=== PATIENT | male | born 1985 | race Caucasian/White ===

== ENCOUNTER 2022-09-03 11:32 | Emergency (ER) | payer OTHER, SELFPAY ==
--- NOTE | ~2022-09-03 | XR_ITS ---
EXAMINATION: XR CHEST CLINICAL INFORMATION: Chest pain COMPARISON: None available. TECHNIQUE: 2 views of the chest were obtained. FINDINGS: No significant abnormality is noted involving the heart, lungs, mediastinum, bony thorax or soft tissues. XR/XR chest 2V IMPRESSION: Unremarkable examination.
[2022-09-03 11:33] VITALS: BP 153/98; PULSE 68; RESP 18; TEMP 36.8; O2SAT 98; BMI 31.4
--- NOTE | 2022-09-03 11:33 | ED_ITS ---
[facility] - General Adult General Chief complaint: Chest Pain Stated complaint: vital check Time Seen by Provider: 09/03/22 12:03 Source: patient and family () Mode of arrival: ambulatory History of Present Illness HPI narrative: 37-year-old male, otherwise healthy, states that he began experiencing chest pressure while driving just prior to arrival denies any alcohol or drug use, denies any family history of early cardiac disease denies any prescription medication. Patient still continues to have chest pressure/tightness, nonradiating and not associated with any dizziness/diaphoresis/nausea/shortness of breath. Related Data Allergies Allergy/AdvReac Type Severity Reaction Status Date / Time No Known Allergies Allergy Verified 09/03/22 14:17 Review of Systems Review of Systems: Pertinent positives and negatives as stated in [facility] Past Medical History Source: nursing notes reviewed Social History Social History Smoked in Last 30 Days: Yes Use of substances other than those prescribed or required for medical reasons: No Substance Use Type: Crack/Cocaine Substance Use Frequency: Occasionally Substance Use Frequency Other:: last use one month ago Advance Directives: No Advance Directives Information Provided: Yes Physical Exam ED Vital Signs: Vital Signs - 24 hr 09/03/22 11:33 09/03/22 12:43 09/03/22 13:50 Temperature 98.3 F 98.0 F Pulse Rate 68 59 59 Respiratory Rate 18 18 15 Blood Pressure 153/98 H 137/83 128/89 Pulse Oximetry 98 97 Oxygen Delivery Method Room Air Room Air BMI result Body Mass Index 31.4 VITAL SIGNS: Reviewed. GENERAL: Well developed, well nourished, in no acute distress. HEAD: Normocephalic/atraumatic EYES: PERRLA, EOMI EARS: Ext canals without abnormality NOSE: Nares patent bilateral OROPHARYNX: no oral lesions noted, posterior pharynx clear NECK: Supple, no adenopathy LUNGS: Normal breath sounds. No adventitious sounds or accessory muscle use. SpO2<98> CARDIOVASCULAR: Regular rate and rhythm without noted murmurs ABDOMEN: Soft, non-tender, non-distended with bowel sounds. MUSCULOSKELETAL: No tenderness, deformities, or effusions noted on gross inspection. EXTREMITIES: No cyanosis, clubbing or edema. SKIN: Inspection of the skin reveals no rashes NEUROLOGIC: Alert and oriented x 4. Strength and sensation to light touch were grossly intact x 4. Course Course Course Narrative: This is an RME: Additional HPI, ROS, PE not included below will be deferred to primary provider. This is a 37-year-old, with no known medical history, presenting to the emergency department with complaints of chest pain since today. Patient states that he was driving and suddenly felt a sharp pain in the left side of his chest. Denies history of similar symptoms in the past. No known family cardiac history. Mildly hypertension 153/98. All other VS WNL. Plan: labs, EKG, cxr Medications Administered Generic Name Dose Route Start Last Admin Trade Name Freq PRN Reason Stop Dose Admin Heparin Sodium/Sodium Chloride 25,000 unit in 250 mls @ 0 mls/hr 09/03/22 12:30 09/03/22 14:40 Heparin Sodium,Porcine/1/2ns IVCONT 0 units/kg/hr .Q0M NA 0 mls/hr Titration Protocol Per Protocol Discontinued Medications Generic Name Dose Route Start Last Admin Trade Name Freq PRN Reason Stop Dose Admin Aspirin 324 mg 09/03/22 11:55 09/03/22 12:05 Aspirin 81 Mg Tab.Chew PO 09/03/22 11:56 324 mg ONCE ONE Administration Atorvastatin Calcium 80 mg 09/03/22 12:18 09/03/22 12:29 Atorvastatin Calcium 80 Mg Tablet PO 09/03/22 12:19 80 mg ONCE ONE Administration Heparin Sodium (Porcine) 8,200 unit 09/03/22 12:23 09/03/22 12:29 Heparin Sodium,Porcine 5,000 Unit/Ml Vial 80 unit/kg (8200 unit) 09/03/22 12:24 8,200 unit IVPUSH Administration ONCE ONE Metoprolol Tartrate 25 mg 09/03/22 12:18 09/03/22 12:30 Metoprolol Tartrate 25 Mg Tablet PO 09/03/22 12:19 25 mg ONCE ONE Administration Protocol Medical Decision Making Medical Decision Making MDM Narrative: 1202: 37-year-old male with history and clinical presentation concerning for EKG findings that suggest Wellens with associated chest pressure/pain. A brought patient back immediately from the waiting room and have contacted cardiology with relevant historical findings and given patient aspirin. I immediately set at the bedside and discussed with patient the current findings and concerns. Cardiology has advise that will await initial troponins although these may be within normal limits. 1226: Patient given statin, beta-tanner, and started on heparin drip with bolus. Bedside echo is in process at this time. 1225: Cardiology, Dr. Love, currently making arrangements for PCI transfer to [facility]. 1242: Dr Sprague accepts transfer to PCU at this time. I was informed that the PTT was greater than 200, although protocol dictates that more time should of past prior to checking the PTT given the bolus and initiation of the heparin, I made the decision to hold the heparin drip for 1 hour and will check the PTT again in adjust as appropriate. We are still awaiting PCU bed at this time. Differential Diagnosis Please see the discussion above Consult Healthcare Provider Management of the patient was discussed with: Auto Slip Cover Installer Please see the discussion above Lab Data Please see the discussion above 09/03/22 11:47 09/03/22 11:47 Labs: Lab Results 09/03/22 09/03/22 09/03/22 Range/Units 11:47 11:47 11:47 WBC 5.9 (4.8-10.8) X10*3/uL RBC 5.31 (4.60-5.80) X10*6/uL Hgb 15.6 (14.0-18.0) g/dl Hct 45.9 (42.0-52.0) % MCV 86.4 (80.0-98.0) fL MCH 29.4 (27.0-33.0) pg MCHC 34.0 (31.0-36.0) g/dl RDW 12.7 (11.0-16.0) % Plt Count 230 (160-400) X10*3/uL MPV 10.3 (9.4-12.4) fL Immature Gran % (Auto) 0.2 (0.0-0.4) % Neut % (Auto) 54.0 (45-73) % Lymph % (Auto) 36.5 (20-40) % [place] % (Auto) 6.6 (2-11) % Eos % (Auto) 2.4 (0-4) % Baso % (Auto) 0.3 (0-2) % Lymph # (Auto) 2.2 (1.2-4.9) X10*3/uL [place] # (Auto) 0.4 (0.1-1.2) X10*3/uL Eos # (Auto) 0.1 (0.0-0.4) X10*3/uL Baso # (Auto) 0.0 (0.0-0.2) X10*3/uL Abs Immat Gran (auto) 0.01 (0.00-0.03) X10*3/uL Absolute Neuts (auto) 3.2 (2.0-8.3) x10*3/uL Absolute Nucleated RBC 0.000 (0.0-0.012) X10*3/uL Nucleated RBC % (auto) 0.0 (0.0-0.2) /100WBC PT 9.9 L (10.0-13.1) SEC INR 0.9 (0.9-1.1) APTT 31.4 (26.0-36.4) SEC aPTT Heparin Protocol (53-77.9) SEC Sodium 140 (135-145) mmol/L Potassium 3.9 (3.3-5.1) mmol/L Chloride 102 (96-108) mmol/L Carbon Dioxide 26 (22-29) mmol/L Anion Gap 16 (12-20) BUN 14 (9-16) mg/dL Creatinine 0.88 (0.5-1.4) mg/dL Estim Creat Clear Calc 137.0 Estimated GFR > 60 Random Glucose 104 (60-115) mg/dL Calcium 10.4 H (8.4-10.2) mg/dL Magnesium 2.0 (1.6-2.6) mg/dL Total Bilirubin 0.5 (0.0-1.0) mg/dL Direct Bilirubin 0.2 (0.0-0.5) mg/dL AST 21 (5-37) U/L ALT 26 (0-40) U/L Alkaline Phosphatase 32 L (39-117) U/L Troponin I High Sens (<3.5-35.0) ng/L Total Protein 7.9 (6.5-8.0) g/dL Albumin 4.9 (3.5-5.0) g/dL COVID-19 ([facility]) (Negative) COVID-19 Clin Com 09/03/22 09/03/22 09/03/22 Range/Units 11:47 12:49 13:47 WBC 6.6 (4.8-10.8) X10*3/uL RBC 5.31 (4.60-5.80) X10*6/uL Hgb 15.7 (14.0-18.0) g/dl Hct 44.9 (42.0-52.0) % MCV 84.6 (80.0-98.0) fL MCH 29.6 (27.0-33.0) pg MCHC 35.0 (31.0-36.0) g/dl RDW 12.5 (11.0-16.0) % Plt Count 239 (160-400) X10*3/uL MPV 10.3 (9.4-12.4) fL Immature Gran % (Auto) (0.0-0.4) % Neut % (Auto) (45-73) % Lymph % (Auto) (20-40) % [place] % (Auto) (2-11) % Eos % (Auto) (0-4) % Baso % (Auto) (0-2) % Lymph # (Auto) (1.2-4.9) X10*3/uL [place] # (Auto) (0.1-1.2) X10*3/uL Eos # (Auto) (0.0-0.4) X10*3/uL Baso # (Auto) (0.0-0.2) X10*3/uL Abs Immat Gran (auto) (0.00-0.03) X10*3/uL Absolute Neuts (auto) (2.0-8.3) x10*3/uL Absolute Nucleated RBC 0.000 (0.0-0.012) X10*3/uL Nucleated RBC % (auto) 0.0 (0.0-0.2) /100WBC PT (10.0-13.1) SEC INR (0.9-1.1) APTT (26.0-36.4) SEC aPTT Heparin Protocol (53-77.9) SEC Sodium (135-145) mmol/L Potassium (3.3-5.1) mmol/L Chloride (96-108) mmol/L Carbon Dioxide (22-29) mmol/L Anion Gap (12-20) BUN (9-16) mg/dL Creatinine (0.5-1.4) mg/dL Estim Creat Clear Calc Estimated GFR Random Glucose (60-115) mg/dL Calcium (8.4-10.2) mg/dL Magnesium (1.6-2.6) mg/dL Total Bilirubin (0.0-1.0) mg/dL Direct Bilirubin (0.0-0.5) mg/dL AST (5-37) U/L ALT (0-40) U/L Alkaline Phosphatase (39-117) U/L Troponin I High Sens < 2.7 (<3.5-35.0) ng/L Total Protein (6.5-8.0) g/dL Albumin (3.5-5.0) g/dL COVID-19 ([facility]) Negative (Negative) COVID-19 Clin Com See Note 09/03/22 09/03/22 Range/Units 13:47 13:47 WBC (4.8-10.8) X10*3/uL RBC (4.60-5.80) X10*6/uL Hgb (14.0-18.0) g/dl Hct (42.0-52.0) % MCV (80.0-98.0) fL MCH (27.0-33.0) pg MCHC (31.0-36.0) g/dl RDW (11.0-16.0) % Plt Count (160-400) X10*3/uL MPV (9.4-12.4) fL Immature Gran % (Auto) (0.0-0.4) % Neut % (Auto) (45-73) % Lymph % (Auto) (20-40) % [place] % (Auto) (2-11) % Eos % (Auto) (0-4) % Baso % (Auto) (0-2) % Lymph # (Auto) (1.2-4.9) X10*3/uL [place] # (Auto) (0.1-1.2) X10*3/uL Eos # (Auto) (0.0-0.4) X10*3/uL Baso # (Auto) (0.0-0.2) X10*3/uL Abs Immat Gran (auto) (0.00-0.03) X10*3/uL Absolute Neuts (auto) (2.0-8.3) x10*3/uL Absolute Nucleated RBC (0.0-0.012) X10*3/uL Nucleated RBC % (auto) (0.0-0.2) /100WBC PT 10.7 (10.0-13.1) SEC INR 0.9 (0.9-1.1) APTT (26.0-36.4) SEC aPTT Heparin Protocol > 200.0 H* (53-77.9) SEC Sodium (135-145) mmol/L Potassium (3.3-5.1) mmol/L Chloride (96-108) mmol/L Carbon Dioxide (22-29) mmol/L Anion Gap (12-20) BUN (9-16) mg/dL Creatinine (0.5-1.4) mg/dL Estim Creat Clear Calc Estimated GFR Random Glucose (60-115) mg/dL Calcium (8.4-10.2) mg/dL Magnesium (1.6-2.6) mg/dL Total Bilirubin (0.0-1.0) mg/dL Direct Bilirubin (0.0-0.5) mg/dL AST (5-37) U/L ALT (0-40) U/L Alkaline Phosphatase (39-117) U/L Troponin I High Sens < 2.7 (<3.5-35.0) ng/L Total Protein (6.5-8.0) g/dL Albumin (3.5-5.0) g/dL COVID-19 ([facility]) (Negative) COVID-19 Clin Com Independent Interpretation I performed an independent interpretation of an: EKG Interpretation: Normal sinus rhythm, HR-65, rhythm appears in Wellens morphology, QTC within normal limits 1210: Normal sinus rhythm, HR-72, well as morphology per CIS with concern of hyperacute T-waves in V1/V2 Discharge Plan Discharge Clinical Impression: Chest pain, ACS (acute coronary syndrome) Patient Disposition: Xfer [facility] Transfer Details: ACS, PCI
--- NOTE | 2022-09-03 11:35 | ECG_ITS ---
Test Reason : CHEST PAIN Blood Pressure : / mmHG Vent. Rate : 065 BPM Atrial Rate : 065 BPM P-R Int : 156 ms QRS Dur : 110 ms QT Int : 390 ms P-R-T Axes : 033 059 -04 degrees QTc Int : 405 ms Normal sinus rhythm with sinus arrhythmia RSR' or QR pattern in V1 suggests right ventricular conduction delay Minimal voltage criteria for LVH, may be normal variant ( Sokolow-Dubois ) T wave abnormality, consider lateral ischemia Abnormal ECG No previous ECGs available Referred By: Faustina Tamez Electronically Signed By:JOAO GARZA
[2022-09-03 11:51] LABS: MANUAL DIFF FLAG NO
[2022-09-03 11:52] LABS: Basophils Percent Auto 0.3 % (0-2); Eosinophils Absolute Auto 0.1 X10*3/uL (0.0-0.4); Eosinophils Percent Auto 2.4 % (0-4); Hematocrit 45.9 % (42.0-52.0); Hemoglobin 15.6 g/dl (14.0-18.0); Imm Gran Abs Auto 0.01 X10*3/uL (0.00-0.03); Imm Gran Pct Auto 0.2 % (0.0-0.4); Lymphocytes Absolute Auto 2.2 X10*3/uL (1.2-4.9); Lymphocytes Percent Auto 36.5 % (20-40); Mean Corpuscular Hemoglobin 29.4 pg (27.0-33.0); Mean Corpuscular Volume 86.4 fL (80.0-98.0); Mean Platelet Volume 10.3 fL (9.4-12.4); Monocytes Absolute Auto 0.4 X10*3/uL (0.1-1.2); Monocytes Percent Auto 6.6 % (2-11); Neutrophils Absolute Auto 3.2 x10*3/uL (2.0-8.3); Platelet Count 230 X10*3/uL (160-400); Red Blood Count 5.31 X10*6/uL (4.60-5.80); Red Cell Distribution Width 12.7 % (11.0-16.0); White Blood Count 5.9 X10*3/uL (4.8-10.8)
[2022-09-03] MEDS: Aspirin 81 MG TAB.CHEW 324 MG PO (12:05)
[2022-09-03 12:06] LABS: INTERNATIONAL NORM RATIO 0.9 (0.9-1.1); Prothrombin Time 9.9 SEC (10.0-13.1)
--- NOTE | 2022-09-03 12:06 | CA_ITS ---
Transthoracic Echocardiogram Patient (Last, First, Middle): Bijan Reed Gregory Gender: Male Date of : 1985 Age: 37 Procedure Date: 09/03/2022 Procedure Type: Transthoracic Echocardiogram Location: ER Height: 180.34 cm Weight: 102.06 kg BSA: 2.22 m2 Heart Rate: bpm BP: 153 / 98 mmHg Sales Producer: NATALYA Referring MD: Nehemiah Love MD Symptoms: chest pain Study Quality: Adequate with contrast ECG Rhythm: Sinus Conclusions: - The left ventricular systolic function is normal. The calculated ejection fraction is 55% by biplane method. - With contrast, possible hypokinesis in the mid anterior septum in some images. - No obvious valvular pathology seen on this study. Findings Procedure Information Contrast agent, definity, is being given per protocol without apparent complications. Left Ventricle Normal left ventricular cavity size. There is mildly increased left ventricular wall thickness. The left ventricular systolic function is normal. The calculated ejection fraction is 55% by biplane method. Diastolic function is normal for age. With contrast, possible hypokinesis in the mid anterior septum in some images. Right Ventricle Normal right ventricular cavity size and systolic function. Atria Both atria are normal in size. Aortic Valve There is a normal trileaflet aortic valve. There is no aortic valve stenosis. There is no aortic valve regurgitation. Mitral Valve The mitral valve appears normal. There is no mitral valve regurgitation. There is no mitral valve stenosis. Pulmonic Valve The pulmonic valve is likely normal. Tricuspid Valve There is trace tricuspid valve regurgitation. There is no evidence of pulmonary hypertension. Great Vessels The asc aorta is normal in size. Venous The inferior vena cava was not well visualized. Pericardium/Pleural There is no evidence of pericardial effusion. Prior Study Comparison No prior study available for comparison. Recommendations, Care & Conclusions No obvious valvular pathology seen on this study. Measurements 2D Linear Measurements IVSd: 1.28 0.6-0.9/0.6-1.0 cm LVIDd: 4.93 3.9-5.3/4.2-5.9 cm LVIDd Index: 2.22 2.4-3.2/2.2-3.1 cm/m2 LVIDs: 3.31 2.0-3.6 cm LVPWd: 1.21 0.7-1.1 cm LA Diam: 4.10 2.7-3.8/3.0-4.0 cm LAIDs Index: 1.85 1.5-2.3 cm/m2 LV Mass: 300.24 67-162/88-224 g LV Mass Index: 135.24 43-95/49-115 g/m2 LVOT Diam: 2.20 3.0+(-)1.3 cm 2D Systolic Function EF 4C: 55.10 >55% EF 2C: 54.50 >55% EF BiP: 54.90 >55% Mitral Valve MV Pk E: 0.73 MV PK A: 0.46 MV Decel Time: 229.00 E/A: 1.60 E'Lateral: 14.10 E'Medial: 8.38 E/E' Med: 8.70 E/E' Lat: 5.20 PHT: 67.00 MVA PHT: 3.28 Decel [place]: 3.20 Aortic Valve AoV Pk Rosas: 1.19 AoV Mn Rosas: 0.80 AoV VTI: 0.25 AoV Pk Grad: 6.00 Aov Mn Grad: 3.00 RENETTA Cont.VTI: 3.06 LVOT LVOT Pk Rosas: 0.91 LVOT Mn Rosas: 0.57 LVOT VTI: 0.20 LVOT Pk Grad: 3.00 LVOT Mn Grad: 2.00 LVOT Diam: 2.20 LVOT Area: 3.80 Diastolic Function MV Pk E: 0.73 MV Pk A: 0.46 E/A: 1.60 E'Medial: 8.38 E/E' Med: 8.70 E' Laterial: 14.10 E/E' Lat: 5.20 Right Ventricle TAPSE (mm): 20.30 TVS' Rosas: 11.30 Tricuspid Valve TR Pk Rosas: 2.12 TR Pk Grad: 18.00 RA Press: 3.00 RVSP: 21.00 Great Vessels Aorta Sinus of Valsalva: 3.61 2.0-3.[address] [place]: 2.53 1.7-3.4 cm Ao Asc: 3.20 2.1-3.4 cm Ao Arch: 2.60 Updated in Other Vendor System with Status of Final Nehemiah Love MD electronically signed on 09/03/2022 2:05:52 PM with status of Final
[2022-09-03 12:09] LABS: Partial Thromboplastin Time 31.4 SEC (26.0-36.4)
--- NOTE | 2022-09-03 12:11 | ECG_ITS ---
Test Reason : CP Blood Pressure : / mmHG Vent. Rate : 072 BPM Atrial Rate : 072 BPM P-R Int : 162 ms QRS Dur : 110 ms QT Int : 412 ms P-R-T Axes : 037 049 008 degrees QTc Int : 451 ms Normal sinus rhythm ST & T wave abnormality, consider lateral ischemia Abnormal ECG When compared with ECG of 03-SEP-2022 11:35, QRS complexes amplitude higher in V1-V2. Referred By: Marjorie Lux Electronically Signed By:JOAO GARZA
--- NOTE | 2022-09-03 12:14 | PC.NURSE ---
Dr Love in to see pt.
[2022-09-03 12:19] LABS: Alanine Aminotransferase 26 U/L (0-40); Albumin Level 4.9 g/dL (3.5-5.0); Alkaline Phosphatase 32 U/L (39-117); Anion Gap 16 (12-20); Aspartate Amino Transferase 21 U/L (5-37); Bilirubin Direct 0.2 mg/dL (0.0-0.5); Bilirubin Total 0.5 mg/dL (0.0-1.0); Blood Urea Nitrogen 14 mg/dL (9-16); Calcium 10.4 mg/dL (8.4-10.2); Carbon Dioxide 26 mmol/L (22-29); Chloride 102 mmol/L (96-108); Estimated Glomerular Filt Rate > 60; Glucose Random 104 mg/dL (60-115); Potassium 3.9 mmol/L (3.3-5.1); Sodium 140 mmol/L (135-145); Total Protein 7.9 g/dL (6.5-8.0)
[2022-09-03 12:20] VITALS: BMI 31.4
[2022-09-03] MEDS: Heparin Sodium,Porcine 5,000 UNIT/ML VIAL 8200 UNIT IVPUSH (12:29)
[2022-09-03] MEDS: Atorvastatin Calcium 80 MG TABLET PO (12:29)
[2022-09-03] MEDS: Metoprolol Tartrate 25 MG TABLET PO (12:30)
[2022-09-03 12:35] LABS: Troponin-I High Sensitivity < 2.7 ng/L (<3.5-35.0)
[2022-09-03] MEDS: Heparin Sodium,Porcine/1/2NS 25,000 UNIT/250 ML IV.SOLN 10 UNIT IVCONT (12:37)
[2022-09-03 12:43] VITALS: BP 137/83; PULSE 59; RESP 18
--- NOTE | 2022-09-03 12:44 | P.CONCA_ITS ---
History of Present Illness History of Present Illness Date of Service: 09/03/22 Chief complaint: vital check Narrative: This is a cardiology consultation regarding chest pain. Patient is from [place] and is visiting. Apparently was driving all of son developed substernal chest pain. That led to the ER visit. He states that he has generally been very healthy and never had any major health issues. No specific cardiac concerns at any point. He states that his blood pressures also been normal. He does see his physician periodically. At the time of evaluation, he points to the substernal area somewhere in center of his chest. Localized pain about 2/10 intensity. Review of Systems Review of Systems: Yes all other systems are reviewed and are negative Constitutional: Constitutional: Reports as per HPI and Reports no additional constitutional complaints Eyes: Eyes: Reports as per HPI and Denies no additional eye complaints ENT: Denies system reviewed and no additional complaints, except as documented and Reports as per HPI Cardiovascular: Cardiovascular: Reports as per HPI, Reports no additional cardiovascular complaints, Denies acrocyanosis, Denies cool extremities, Denies chest pain, Denies leg edema, Denies lightheadedness, Denies palpitations and Denies dyspnea Respiratory: Respiratory: Reports as per HPI, Denies no additional respiratory complaints and Denies dyspnea Gastrointestinal: Gastrointestinal: Reports as per HPI and Denies no additional gastrointestinal complaints Genitourinary: Genitourinary: Reports no additional male genitourinary complaints and Reports as per HPI Musculoskeletal: Musculoskeletal: Reports no additional musculoskeletal complaints and Reports as per HPI Integumentary/Breasts: Skin/Breast: Reports system reviewed and no additional complaints, except as docu Neurologic: Reports system reviewed and no additional complaints, except as documented and Reports as per HPI Psychiatric: Psychiatric: Reports no additional psychiatric complaints and Reports as per HPI Endocrine: Endocrine: Reports no additional endocrine complaints, Reports as per HPI and Denies palpitations Hematologic/Lymphatic: Hematologic/Lymphatic: Reports no additional hematologic/lymphatic complaints and Reports as per HPI Allergic/Immunologic: Allergic/Immunologic: Reports no additional allergic/immunologic complaints and Reports as per HPI PMFSH Past Medical History Cognitive capacity: No significant past medical history per patient. Family History Pertinent family history: Denies any premature CAD. Social History Social History Advance Directives: No Advance Directives Information Provided: Yes Meds Allergies Allergy/AdvReac Type Severity Reaction Status Date / Time No Known Allergies Allergy Verified 09/03/22 11:35 Active Medications: Current Medications Heparin Sodium (Porcine) (Heparin Sodium,Porcine 5,000 Unit/Ml Vial) 4,100 unit 40 unit/kg (4100 unit) IVPUSH PROTOCOL BOLUS PRN; Protocol PRN Reason: 40 unit/kg - Heparin Protocol Heparin Sodium (Porcine) (Heparin Sodium,Porcine 5,000 Unit/Ml Vial) 8,200 unit 80 unit/kg (8200 unit) IVPUSH PROTOCOL BOLUS PRN; Protocol PRN Reason: 80 unit/kg - Heparin Protocol Heparin Sodium/Sodium Chloride (Heparin Sodium,Porcine/1/2ns) 25,000 unit in 250 mls @ 0 mls/hr IVCONT .Q0M NA; Protocol Last Admin: 09/03/22 12:37 Dose: 9.8 units/kg/hr, 10 mls/hr Physical Exam Vital Signs: Vital Signs: Last Vital Signs Temp 98.3 F 09/03/22 11:33 Pulse 59 09/03/22 12:43 Resp 18 09/03/22 12:43 BP 137/83 09/03/22 12:43 Pulse Ox 98 09/03/22 11:33 O2 Del Method Room Air 09/03/22 11:33 BMI result Body Mass Index 31.4 Const: General: comfortable and no acute distress Orientation/consciousness: patient oriented x3 HEENT: Other: Unremarkable Head: Yes normal to inspection Neck: Neck: Yes normal visual inspection Chest: Chest palpation & inspection: normal inspection of the chest Resp: Auscultation: clear to auscultation bilaterally Cardio: Palpation: normal PMI Heart sounds: S1 normal heart sound present, S2 normal heart sound present, no gallops, no murmurs and no rubs GI: Palpation (GI): Soft to palpation Back/Spine/Pelvis: Other: unremarkable Skin: General skin exam: no rashes or lesions noted Neuro: General: patient oriented x3 Extrem: General: Yes normal to inspection Psych: Mental Status: mental status grossly normal Objective Labs and Meds 09/03/22 11:47 09/03/22 11:47 Lab results: Laboratory Results - last 24 hr 09/03/22 09/03/22 09/03/22 11:47 11:47 11:47 WBC 5.9 RBC 5.31 Hgb 15.6 Hct 45.9 MCV 86.4 MCH 29.4 MCHC 34.0 RDW 12.7 Plt Count 230 MPV 10.3 Immature Gran % (Auto) 0.2 Neut % (Auto) 54.0 Lymph % (Auto) 36.5 [place] % (Auto) 6.6 Eos % (Auto) 2.4 Baso % (Auto) 0.3 Lymph # (Auto) 2.2 [place] # (Auto) 0.4 Eos # (Auto) 0.1 Baso # (Auto) 0.0 Abs Immat Gran (auto) 0.01 Absolute Neuts (auto) 3.2 Absolute Nucleated RBC 0.000 Nucleated RBC % (auto) 0.0 PT 9.9 L INR 0.9 APTT 31.4 Sodium 140 Potassium 3.9 Chloride 102 Carbon Dioxide 26 Anion Gap 16 BUN 14 Creatinine 0.88 Estim Creat Clear Calc 137.0 Estimated GFR > 60 Random Glucose 104 Calcium 10.4 H Magnesium 2.0 Total Bilirubin 0.5 Direct Bilirubin 0.2 AST 21 ALT 26 Alkaline Phosphatase 32 L Troponin I High Sens Total Protein 7.9 Albumin 4.9 09/03/22 11:47 WBC RBC Hgb Hct MCV MCH MCHC RDW Plt Count MPV Immature Gran % (Auto) Neut % (Auto) Lymph % (Auto) [place] % (Auto) Eos % (Auto) Baso % (Auto) Lymph # (Auto) [place] # (Auto) Eos # (Auto) Baso # (Auto) Abs Immat Gran (auto) Absolute Neuts (auto) Absolute Nucleated RBC Nucleated RBC % (auto) PT INR APTT Sodium Potassium Chloride Carbon Dioxide Anion Gap BUN Creatinine Estim Creat Clear Calc Estimated GFR Random Glucose Calcium Magnesium Total Bilirubin Direct Bilirubin AST ALT Alkaline Phosphatase Troponin I High Sens < 2.7 Total Protein Albumin ECG Interpretation: In the initial EKG, sinus rhythm at 65/Min; possible LVH; inverted T-waves across the precordial leads. Nonspecific changes in the inferior leads. No prior EKG for comparison. In the subsequent EKG, the T-wave amplitude in the anteroseptal leads seem to have increased slightly compared to the initial EKG. Assessment and Plan (1) Chest pain: Status: Acute (2) ACS (acute coronary syndrome): Status: Acute Plan Acute chest pain, no prior history, abnormal EKG, negative 1st set of troponin. We do not have any prior EKGs for comparison. Bedside echocardiogram is being performed. Irrespective of the echocardiogram results, still recommend further workup. Recommended diagnostic catheterization. Discussed with significant other at the bedside. Plan to transfer to [facility]. Accepted by Dr. Sprague, PCU. Also discussed with ER physician. In the interim, treat for ACS with heparin drip, aspirin, beta-blockers and statins. Time Spent With Patient Time: Total time managing care of this patient today ____ minutes. Procedures Date of Service Date of Service: 09/03/22
--- NOTE | 2022-09-03 13:36 | PC.NURSE ---
assumed care of this pt, echo at bedside. pt endorses non radiating cp 2/10 at this time. vss, nsr on monitor. resp even, nonlaboured, skin pwd. heparin gtt running, bloodwork to be drawn. pt aware of plan for care and transfer.
[2022-09-03 13:41] LABS: COVID-19 Test Negative (Negative); IDNOW Serial# 08D9AD1C
[2022-09-03 13:50] VITALS: BP 128/89; PULSE 59; RESP 15; TEMP 36.7; O2SAT 97
[2022-09-03 13:53] LABS: Hematocrit 44.9 % (42.0-52.0); Hemoglobin 15.7 g/dl (14.0-18.0); Mean Corpuscular Hemoglobin 29.6 pg (27.0-33.0); Mean Corpuscular Volume 84.6 fL (80.0-98.0); Mean Platelet Volume 10.3 fL (9.4-12.4); Platelet Count 239 X10*3/uL (160-400); Red Blood Count 5.31 X10*6/uL (4.60-5.80); Red Cell Distribution Width 12.5 % (11.0-16.0); White Blood Count 6.6 X10*3/uL (4.8-10.8)
[2022-09-03 14:04] LABS: INTERNATIONAL NORM RATIO 0.9 (0.9-1.1); Prothrombin Time 10.7 SEC (10.0-13.1)
--- NOTE | 2022-09-03 14:11 | ECG_ITS ---
Test Reason : CHEST PAIN Blood Pressure : / mmHG Vent. Rate : 061 BPM Atrial Rate : 061 BPM P-R Int : 168 ms QRS Dur : 112 ms QT Int : 422 ms P-R-T Axes : 022 047 012 degrees QTc Int : 424 ms Normal sinus rhythm ST & T wave abnormality, consider anterolateral ischemia Abnormal ECG When compared with ECG of 03-SEP-2022 12:10, No significant change was found Referred By: Marjorie Lux Electronically Signed By:JOAO GARZA
[2022-09-03 14:12] VITALS: PULSE 62
[2022-09-03 14:25] LABS: PTT Heparin Drip > 200.0 SEC (53-77.9)
--- NOTE | 2022-09-03 14:40 | PC.NURSE ---
aptt over 200, per Dr keith we will hold heparin for 1 hour and the repeat the aptt heparin drip , order placed for 1540 lab draw
--- NOTE | 2022-09-03 14:43 | PC.NURSE ---
heparin drip paused d/t aptt, specimen to be drawn again within [address] Lux.
[2022-09-03 14:45] LABS: Troponin-I High Sensitivity < 2.7 ng/L (<3.5-35.0)
[2022-09-03 15:33] VITALS: BP 126/93; PULSE 64; RESP 18; TEMP 36.7; O2SAT 97
[2022-09-03 16:04] LABS: PTT Heparin Drip 59.6 SEC (53-77.9)
--- NOTE | 2022-09-03 16:57 | HE.PHANOTE ---
RE HEPARIN CALLED ALEXYS TO CONFIRM 10 ML/HR. PT DISCHARGED REJI
== END 2022-09-03 16:55 | disposition short-term general hospital (02) ==
PROVIDERS: Physician Assistant Medical; Student in an Organized Health Care Education/Training Program; Emergency Provider Emergency Medicine
DX: I24.9 Acute ischemic heart disease, unspecified (principal); R07.9 Chest pain, unspecified; Z20.822 Contact with and (suspected) exposure to COVID-19; I10 Essential (primary) hypertension
CPT/HCPCS: 36415; 71046; 80048; 80076; 83735; 84484; 85025; 85027; 85610; 85730; 87635; 93005; 93306; 96365; 96366; 96375; 99285; J1643; Q9957